=== PATIENT | female | born 1995 | race Caucasian/White ===

== ENCOUNTER 2020-01-24 22:48 | Inpatient (IN) | payer OTHER ==
[~2020-01-24] VITALS: Ht 157.5 cm; Wt 74.4 kg
[2020-01-24] MEDS ORDERED: PRENATAL TABLE1 EACH PO (23:32)
[2020-01-24] MEDS ORDERED: CHILDREN'S ASPI81 MG (23:33)
[2020-02-10] MEDS ORDERED: NAPROXEN500 MG PO (10:52)
== END 2020-02-10 13:23 | disposition home or self-care (01) | DRG 806 ==
LOC: OBS/DEL 22:48 → OB/GYN 23:00 → LDR 23:00 → OB/GYN 01-26 11:44
PROVIDERS: ADMIT Obstetrics & Gynecology
PROC: 4A1HXCZ Monitoring of Products of Conception, Cardiac Rate, External Approach (ICD-10-PCS; 2020-01-24)
PROC: 10E0XZZ Delivery of Products of Conception, External Approach (ICD-10-PCS; principal; 2020-02-08)
PROC: 0HQ9XZZ Repair Perineum Skin, External Approach (ICD-10-PCS; 2020-02-08)
PROC: 0UQMXZZ Repair Vulva, External Approach (ICD-10-PCS; 2020-02-08)
PROC: 3E033VJ Introduction of Other Hormone into Peripheral Vein, Percutaneous Approach (ICD-10-PCS; 2020-02-08)
DX: O70.0 First degree perineal laceration during delivery (principal); O71.5 Other obstetric injury to pelvic organs; Z37.0 Single live birth; O26.843 Uterine size-date discrepancy, third trimester; O13.3 Gestational [pregnancy-induced] hypertension without significant proteinuria, third trimester; O99.013 Anemia complicating pregnancy, third trimester; O71.82 Other specified trauma to perineum and vulva; Z3A.37 37 weeks gestation of pregnancy